=== PATIENT | male | born 1985 | race Hispanic/Latino ===

== ENCOUNTER 2023-10-19 16:38 | Emergency (ER) | payer OTHER, SELFPAY ==
[2023-10-19 16:43] VITALS: BP 129/89
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
[2023-10-19] MEDS: MOTRIN 600 MG PO (18:19)
== END 2023-10-19 18:56 | disposition home or self-care (01) ==
LOC: EMR 16:38
PROVIDERS: EMERGENCY PHYSICIAN Emergency Medicine
DX: S20.212A Contusion of left front wall of thorax, initial encounter (principal); V03.131A Pedestrian on standing electric scooter injured in collision with car, pick-up or van in traffic accident, initial encounter; Y92.414 Local residential or business street as the place of occurrence of the external cause; F17.200 Nicotine dependence, unspecified, uncomplicated
CPT/HCPCS: 99283; 71101